=== PATIENT | male | born 1965 | race Caucasian/White ===

== ENCOUNTER 2021-07-26 08:14 | Emergency (ER) | payer MEDICARE, OTHER ==
[~2021-07-26] VITALS: Ht 185 cm; Wt 100.0 kg
--- OUTSIDE RECORDS SUMMARY | 2021-07-26 08:20 | XMS REPORT | Clinical Summary ---
Author Author [facility] Organization [facility] Address Unknown Phone Unavailable Care Team Providers Care Chopped Strand Operator Name Role Phone Jose Rosales MD PCP Allergies Comments Active Allergy Reactions Severity Noted Date Sulfa (Sulfonamide Confusion, 08/24/2009 Antibiotics) Delirium Medications End Date Status Medication Sig Dispensed Refills Start Date Active gabapentin (NEURONTIN) Take 600 mg 0 600 MG tablet by mouth 3 (three) times a day. Active HYDROcodone-acetaminophen Take 2 0 (NORCO) 7.5-325 mg per tablets by tablet mouth every 6 (six) hours as needed for pain. Active nitroglycerin (NITROSTAT) Dissolve 0.4 0 0.4 MG SL tablet mg under the tongue every 5 (five) minutes as needed for chest pain. May repeat for a total of 3 doses. Active cyclobenzaprine Take 10 mg by 0 (FLEXERIL) 10 MG tablet mouth nightly. Active aspirin 325 MG EC tablet Take 325 mg 0 by mouth daily. Active atorvastatin (LIPITOR) 40 Take 1 tablet 90 tablet 3 11/14/201 MG tablet (40 mg total) 7 by mouth nightly. Active Problems Problem Noted Date Smoker 11/14/2016 FH: CAD (coronary artery disease) 11/14/2016 Essential hypertension 11/14/2016 PVD (peripheral vascular disease) 11/14/2016 Subclavian artery stenosis, left 11/14/2016 Precordial pain 11/14/2016 S/P CABG (coronary artery bypass graft) 08/14/2009 Overview: Formatting of this note might be differ ent from the original. No details History of myocardial infarction 08/14/2009 Hyperlipidemia Current every day smoker Coronary atherosclerosis Family History Medical History Relation Name Comments Heart attack Father Diabetes Mother Heart failure Mother Hypertension Mother Stroke Mother No Known Problems Sister 1 Heart attack Sister 2 Hypertension Sister 2 Relation Name Status Comments Father Mother Sister 1 Alive Sister 2 Alive Social History Date Tobacco Use Types Packs/Day Years Used Started: 1984 Current Every Day Smoker Cigarettes 1 30 Smokeless Tobacco: Former Chew Quit: 1986 User Comments Alcohol Use Standard Drinks/Week Yes 21 (1 standard drink = 0.6 oz pure alcohol) Sex Assigned at Date Recorded Not on file Last Filed Vital Signs Reading Time Taken Comments Vital Sign 124/90 11/14/2016 7:40 AM CDT Blood Pressure 78 11/14/2016 7:36 AM CDT regular Pulse - - Temperature - - Respiratory Rate - - Oxygen Saturation - - Inhaled Oxygen Concentration 77.4 kg (170 lb 9.6 oz) 11/14/2016 7:36 AM CDT Weight 185.4 cm (6' 1") 11/14/2016 7:36 AM CDT Height 22.51 11/14/2016 7:36 AM CDT Body Mass Index Plan of Treatment Health Maintenance Due Date Last Done Comments Td/Tdap# 1965 Tobacco Cessation 1965 Counseling # Pneumococcal Vaccine: 1972 Pediatrics (0 to 5 Years) and At-Risk Patients (6 to 64 Years) (1 of 2 - PPSV23) Zoster Vaccine# (1 of 2) 2016 Influenza Vaccine (#1) 2021 Results Not on filefrom Last 3 Months Advance Directives For more information, please contact: [phone] 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
[2021-07-26] MEDS ORDERED: ORPHENADRINE 60 MG/2 ML (NORFLEX) AMP (ED ONLY) IM STA (08:29)
[2021-07-26] MEDS ORDERED: HYDROmorphone 2 MG/ML VIAL (DILAUDID) IM STA ×2 (08:29→10:04)
[2021-07-26] MEDS ORDERED: KETOROLAC 60 MG/2 ML VIAL IM STA (08:29)
--- NOTE | 2021-07-26 08:36 | ED Back Pain ---
General Chief Complaint: Back Problems Stated Complaint: FALL; BACK INJ Source of Information: Patient, Spouse Exam Limitations: Other (oain) History of Present Illness Date Seen by Provider: Jul 26, 2021 Time Seen by Provider: 08:17 Initial Comments 56-year-old male presenting with complaints of acute on chronic low back pain. He has previously had surgery on his back around 2012. He states that he did not listen to his physician and went back to work too soon after surgery. He has had chronic back pain ever since surgery. He has neuropathy in his legs as well. 3 days ago he was moving some chairs and has had increased back pain and numbness and tingling in his legs since then. This morning at 6 AM he had more weakness in his legs and had fallen causing him to land on his buttocks and low back. He denies hitting his head or losing consciousness. He denies any other injuries from the fall. He denies having any loss of bowel or bladder control. He had taken his morning morphine dose but was still having severe pain. His brought him to the emergency department because he was in tears due to the pain. Even though he has had increased pain the last 3 days he had not made any attempt to try and be seen or contact the clinic for follow-up and evaluation. The thought that the pain and symptoms would improve. He has had no recent imaging of the spine. Location: Coccyx, Lumbar Spine, Paraspinous Muscles Timing/Duration: 3-4 Days, Getting Worse Severity: Severe Pain/Injury Location: Back Method of Injury: Other (as above) Modifying Factors: Worse With Movement Associated Symptoms: muscle spasms; No fever, No weakness; numbness in legs/feet (chronic but felt it was worse in last few days); No sensory/motor loss; lower back pain (acute on chronic); No loss of bladder control, No loss of bowel control Allergies and Home Medications Allergies Coded Allergies: Influenza Virus Vaccines (Verified Allergy, Unknown, 07/26/21) pneumococcal vaccine (Verified Allergy, Unknown, 07/26/21) Patient Home Medication List Home Medication List Reviewed: Yes Methocarbamol (Methocarbamol) 750 Mg Tablet, 1,500 MG PO Q8H PRN for back spasms/pain Prescribed by: DILLAN NUGENT on 07/26/21 1007 Methylprednisolone (Methylprednisolone Dose Pack) 4 Mg Tab.ds.pk, 4 MG PO UD Prescribed by: DILLAN NUGENT on 07/26/21 1007 Oxycodone HCl/Acetaminophen (Percocet 10-325 mg Tablet) 1 Each Tablet, 1 TAB PO Q4H PRN for PAIN-BREAKTHROUGH Prescribed by: DILLAN NUGENT on 07/26/21 1008 Review of Systems Constitutional: no symptoms reported EENTM: no symptoms reported Respiratory: no symptoms reported Cardiovascular: no symptoms reported Gastrointestinal: no symptoms reported Genitourinary: no symptoms reported Musculoskeletal: see HPI Skin: No change in color Psychiatric/Neurological: See HPI Past [id number]-[id number]-[id number] Hx Past Medical History Surgery/Hospitalization HX: Lumbar spine surgery with rods 2012 Surgeries: Yes Orthopedic Cardiac: Yes High Cholesterol, Hypertension Genitourinary: No Gastrointestinal: No Musculoskeletal: Yes Degenerate Disk Disease, Arthritis, Back Injury, Chronic Back Pain Physical Exam Vital Signs Vital Signs - First Documented 07/26/21 08:57 Temp 35.4 Pulse 82 Resp 18 B/P (MAP) 121/74 (90) Pulse Ox 99 O2 Delivery Room Air Capillary Refill : Height, Weight, BMI Height: '" Weight: lbs. oz. kg; BMI Method: General Appearance: WD/WN, Moderate Distress (moaning in pain, especially with movements) Cardiovascular: Regular Rate, Rhythm, Normal Peripheral Pulses Gastrointestinal: No Pulsatile Mass, Non Tender, Soft Back: No CVA Tenderness, Muscle Spasm, Vertebral Tenderness (lumbar spine without step offs or crepitus. 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 Norm as Tested, Other (DTR 2+ symmetrical BLE patellar and achilles) Skin: Normal Color, Warm/Dry Progress/Results/Core Measures Results/Orders My Orders Orders - DILLAN NUGENT MD Hydromorphone Injection (Dilaudid Inject (07/26/21 08:29) Ketorolac Injection (Toradol Injection) (07/26/21 08:29) Orphenadrine Inj (Ed Only) (Norflex Inje (07/26/21 08:29) Ct Lumbar Spine Wo (07/26/21 08:36) Ct Pelvis Wo (07/26/21 08:36) Hydromorphone Injection (Dilaudid Inject (07/26/21 10:04) Vital Signs/I&O 07/26/21 07/26/21 08:57 10:18 Temp 35.4 Pulse 82 Resp 18 B/P (MAP) 121/74 (90) Pulse Ox 99 O2 Delivery Room Air Progress Progress Note #1: Progress Note Since he already takes extended release morphine twice a day as well as taking gabapentin will try Dilaudid IM as well as Toradol for inflammation and Norflex for muscle spasm. Obtain CT scan of the lumbar spine and pelvis to evaluate for acute bony injury from recent fall and straining with moving chairs. Progress Note #2: Progress Note Pain down to 5 out of [address] scan did not demonstrate any acute compression fracture or hardware failure. Will repeat the Dilaudid for additional pain relief and to help with the troponin. Counseled about pain contracts and that I can prescribe a breakthrough pain medication but he may need to check with Dr. Prieto. Also will try a different muscle relaxer since the Flexeril was not helping very much. Will also try a Medrol Dosepak. His called Dr. Prieto's office and they will prescribe pain medicine since he is on a pain contract. I had already sent a script to the pharmacy so advised pt and to fill Dr. Prieto's script not mine for pain. May still need to see pain management, physical therapy, citizen participation specialist. Diagnostic Imaging Diagonstic Imaging: CT Plain Films/CT/US/NM/MRI: pelvis Comments [facility] [place] NAME: [facility] REC#: [id number] PT STATUS: REG ER : 1965 PHYSICIAN: DILLAN NUGENT MD ADMIT DATE: 07/26/21/ER FS Signed Date of Exam:07/26/21 CT PELVIS WO PROCEDURE: CT pelvis without contrast. TECHNIQUE: Multiple contiguous axial images were obtained through the pelvis without the use of intravenous contrast. Sagittal and coronal reformations were performed. Auto Exposure Controls were utilized during the CT exam to meet ALARA standards for radiation dose reduction. INDICATION: Acute on chronic low back pain and pelvic pain. COMPARISON: None. FINDINGS: No acute fracture or dislocation is seen in the pelvis and bilateral hips. No suspicious focal osseous lesions. Mild degenerative changes are seen in the bilateral femoroacetabular joints with joint space narrowing and subchondral sclerosis. Mild degenerative changes are also seen at the pubic symphysis. The bilateral SI joints demonstrate normal alignment. Vascular stents are visualized in the bilateral common iliac arteries and right external iliac artery. Diverticuli are seen in the sigmoid colon without evidence of acute diverticulitis. A normal appendix is seen. The urinary bladder is nondistended. IMPRESSION: 1. No acute fracture or dislocation in the pelvis and bilateral hips. 2. 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 Dictated by: Dictated on workstation # [id number] Dict: 07/26/21914 Trans: 07/26/21921 [facility] [id number] Interpreted by: KATHYA BOURNE DO Electronically signed by: KATHYA BOURNE DO 07/26/21921 Reviewed: Reviewed by Nd Diagonstic Imaging: CT Plain Films/CT/US/NM/MRI: other (lumbar spine) Comments [facility] [place] NAME: [facility] REC#: [id number] PT STATUS: REG ER : 1965 PHYSICIAN: DILLAN NUGENT MD ADMIT DATE: 07/26/21/ER FS Draft Date of Exam:07/26/21 CT LUMBAR SPINE WO PROCEDURE: CT lumbar spine without contrast. TECHNIQUE: Multiple contiguous axial images were obtained through the lumbar spine without the use of intravenous contrast. Sagittal and coronal reformations were then performed. Auto Exposure Controls were utilized during the CT exam to meet ALARA standards for radiation dose reduction. INDICATION: Acute on chronic low back pain. Fall this morning. COMPARISON: None. FINDINGS: There is posterior fusion of the lumbar spine from L4 to L5 with bilateral pedicle screws and posterior fusion rods. No hardware loosening or fracture is seen. There is an interbody disc spacer at L4-L5. Vertebral body heights are preserved. No acute fracture is seen. Alignment appears normal. There is no spondylolisthesis. The soft tissue contents of the spinal canal are not well evaluated by CT. There is moderate stenosis of the L5-S1 foramina bilaterally. There appears to be spinal canal stenosis at L2-L3 and L3-L4. There is marked atherosclerosis in the aorta and bilateral iliac arteries. Stents are placed in the bilateral common iliac arteries. The right common iliac stent appears crushed proximally with marked narrowing. IMPRESSION: 1. Posterior fusion of L4-L5 without hardware complication seen. 2. No acute fracture in the lumbar spine. 3. Degenerative changes with spinal canal and foraminal stenosis as described above. 4. Calcific atherosclerosis with bilateral iliac stents. The proximal right common iliac stent appears crushed with marked narrowing. Dictated on workstation # [id number] Dict: 07/26/21903 Trans: 07/26/2114 [id number] Interpreted by: JANUARY GUSMAN MD Electronically signed by: Reviewed: Reviewed by Me Departure Impression Primary Impression: Acute exacerbation of chronic low back pain Additional Impressions: Acute lumbar myofascial strain Qualified Codes: S39.012A - Strain of muscle, fascia and tendon of lower back, initial encounter Lumbar contusion Qualified Codes: S30.0XXA - Contusion of lower back and pelvis, initial encounter Degenerative lumbar spinal stenosis Fall at home Qualified Codes: W19.XXXA - Unspecified fall, initial encounter; Y92.009 - Unspecified place in unspecified non-institutional (private) residence as the place of occurrence of the external cause Disposition: 01 HOME, SELF-CARE Condition: Improved Departure-Patient Inst. Decision time for Depature: 10:08 Referrals: PAULA PRIETO MD (PCP/Family) Primary Care Physician Patient Instructions: Preventing Falls ED, Muscle Strain ED, Low Back Pain ED Add. Discharge Instructions: Follow up with Dr. Prieto and the [facility] clinic as you may need referred to pain management, physical therapy, and/or citizen participation specialist for your back pain. Use the immediate release medicine for breakthrough pain in addition to your long acting Morphine. Work with Dr. Prieto for controlling your increased pain and worsening back symptoms. If not improving with rest and medicines then Dr. Prieto may have to order an MRI or refer you to citizen participation specialist for your back, You may alternate ice and heat to your back to help with the pain and inflammation. All discharge instructions reviewed with patient and/or family. Voiced understanding. Scripts Oxycodone HCl/Acetaminophen (Percocet 10-325 mg Tablet) 1 Each Tablet 1 TAB PO Q4H PRN for PAIN-BREAKTHROUGH MDD 3 TABS for 7 Days, #42 TAB 0 Refills Prov: DILLAN NUGENT MD 07/26/21 Methocarbamol (Methocarbamol) 750 Mg Tablet 1500 MG PO Q8H PRN for back spasms/pain for 10 Days, #60 TAB 0 Refills Prov: DILLAN NUGENT MD 07/26/21 Methylprednisolone (Methylprednisolone Dose Pack) 4 Mg Tab.ds.pk 4 MG PO UD for Back Pain for 6 Days, #21 PKG 0 Refills PER DOSE PACK INSTRUCTIONS Prov: DILLAN NUGENT MD 07/26/21 DILLAN NUGENT MD Jul 26, 2021 08:36
[2021-07-26 08:57] VITALS: BP 121/74
--- NOTE | 2021-07-26 09:15 | Diagnostic Imaging Report ---
PROCEDURE: CT lumbar spine without contrast. TECHNIQUE: Multiple contiguous axial images were obtained through the lumbar spine without the use of intravenous contrast. Sagittal and coronal reformations were then performed. Auto Exposure Controls were utilized during the CT exam to meet ALARA standards for radiation dose reduction. INDICATION: Acute on chronic low back pain. Fall this morning. COMPARISON: None. FINDINGS: There is posterior fusion of the lumbar spine from L4 to L5 with bilateral pedicle screws and posterior fusion rods. No hardware loosening or fracture is seen. There is an interbody disc spacer at L4-L5. Vertebral body heights are preserved. No acute fracture is seen. Alignment appears normal. There is no spondylolisthesis. The soft tissue contents of the spinal canal are not well evaluated by CT. There is moderate stenosis of the L5-S1 foramina bilaterally. There appears to be spinal canal stenosis at L2-L3 and L3-L4. There is marked atherosclerosis in the aorta and bilateral iliac arteries. Stents are placed in the bilateral common iliac arteries. The right common iliac stent appears crushed proximally with marked narrowing. IMPRESSION: 1. Posterior fusion of L4-L5 without hardware complication seen. 2. No acute fracture in the lumbar spine. 3. Degenerative changes with spinal canal and foraminal stenosis as described above. 4. Calcific atherosclerosis with bilateral iliac stents. The proximal right common iliac stent appears crushed with marked narrowing. Dictated by: Dictated on workstation # [id number]
--- NOTE | 2021-07-26 09:21 | Diagnostic Imaging Report ---
PROCEDURE: CT pelvis without contrast. TECHNIQUE: Multiple contiguous axial images were obtained through the pelvis without the use of intravenous contrast. Sagittal and coronal reformations were performed. Auto Exposure Controls were utilized during the CT exam to meet ALARA standards for radiation dose reduction. INDICATION: Acute on chronic low back pain and pelvic pain. COMPARISON: None. FINDINGS: No acute fracture or dislocation is seen in the pelvis and bilateral hips. No suspicious focal osseous lesions. Mild degenerative changes are seen in the bilateral femoroacetabular joints with joint space narrowing and subchondral sclerosis. Mild degenerative changes are also seen at the pubic symphysis. The bilateral SI joints demonstrate normal alignment. Vascular stents are visualized in the bilateral common iliac arteries and right external iliac artery. Diverticuli are seen in the sigmoid colon without evidence of acute diverticulitis. A normal appendix is seen. The urinary bladder is nondistended. IMPRESSION: 1. No acute fracture or dislocation in the pelvis and bilateral hips. 2. 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 Dictated by: Dictated on workstation # [id number]
[2021-07-26] MEDS ORDERED: OXYC1TAB12 PO (10:07)
[2021-07-26] MEDS ORDERED: METH-732 PO (10:07)
[2021-07-26] MEDS ORDERED: METH4TAB10 PO (10:07)
== END 2021-07-26 10:16 | disposition home or self-care (01) ==
LOC: ER FS 08:17
DX: S39.012A Strain of muscle, fascia and tendon of lower back, initial encounter (principal); M48.061 Spinal stenosis, lumbar region without neurogenic claudication; G89.29 Other chronic pain; I10 Essential (primary) hypertension; X50.0XXA Overexertion from strenuous movement or load, initial encounter; Y92.009 Unspecified place in unspecified non-institutional (private) residence as the place of occurrence of the external cause
CPT/HCPCS: 72131; 72192; 99281

== ENCOUNTER 2022-06-25 17:21 | Emergency (ER) | payer MEDICARE ==
[~2022-06-25] VITALS: Ht 185.4 cm; Wt 100.0 kg
[~2022-06-25 17:21] MED LIST: METH-732 PO; METH4TAB10 PO; OXYC1TAB12 PO
[2022-06-25] MEDS ORDERED: LIDOCAINE 1% INJ 20 ML VIAL INJ STA (17:30)
--- NOTE | 2022-06-25 17:33 | ED Upper Extremity ---
General Chief Complaint: Laceration Stated Complaint: LT FINGER LAC Source: patient History of Present Illness Date Seen by Provider: Jun 25, 2022 Time Seen by Provider: 17:25 Initial Comments 57-year-old male presenting with complaints of laceration to his left index finger. He was trying to dress a deer that he had just killed. He accidentally cut into the back of his left index finger. He states he is left-hand dominant. He finished dressing the deer prior to coming to the emergency department. He had a tetanus shot 2 to 3 years ago. He denies any numbness or weakness in his finger. He denies any other injuries Onset: this afternoon Severity: mild Pain/Injury Location: left 2nd finger Method of Injury: incised Modifying Factors: Worse With Movement Allergies and Home Medications Allergies Coded Allergies: Influenza Virus Vaccines (Verified Allergy, Unknown, 07/26/21) pneumococcal vaccine (Verified Allergy, Unknown, 07/26/21) Patient Home Medication List Home Medication List Reviewed: Yes Doxycycline Hyclate (Doxycycline Hyclate) 100 Mg Tablet, 100 MG PO BID Prescribed by: DILLAN NUGENT on 06/25/22 1815 Methocarbamol (Methocarbamol) 750 Mg Tablet, 1,500 MG PO Q8H PRN for back spasms/pain Prescribed by: DILLAN NUGENT on 07/26/21 1007 Methylprednisolone (Methylprednisolone Dose Pack) 4 Mg Tab.ds.pk, 4 MG PO UD Prescribed by: DILLAN NUGENT on 07/26/21 1007 Oxycodone HCl/Acetaminophen (Percocet 10-325 mg Tablet) 1 Each Tablet, 1 TAB PO Q4H PRN for PAIN-BREAKTHROUGH Prescribed by: DILLAN NUGENT on 07/26/21 1008 Review of Systems Constitutional: No chills, No fever EENTM: no symptoms reported Respiratory: no symptoms reported Cardiovascular: no symptoms reported Gastrointestinal: no symptoms reported Genitourinary: no symptoms reported Musculoskeletal: see HPI Skin: see HPI Psychiatric/Neurological: Denies Numbness, Denies Paresthesia, Denies Tingling, Denies Weakness Past Zedagay-Lymmfy-Qbqqcr Hx Past Medical History Surgery/Hospitalization HX: Lumbar spine surgery with rods 2012 Surgeries: Yes Orthopedic Cardiac: Yes High Cholesterol, Hypertension Genitourinary: No Gastrointestinal: No Musculoskeletal: Yes Degenerate Disk Disease, Arthritis, Back Injury, Chronic Back Pain Physical Exam Vital Signs Vital Signs - First Documented 06/25/22 17:25 Temp 36.4 Pulse 99 Resp 16 B/P (MAP) 164/97 (119) Pulse Ox 96 O2 Delivery Room Air Capillary Refill : Height, Weight, BMI Height: '" Weight: lbs. oz. kg; 29.00 BMI Method: General Appearance: WD/WN, no apparent distress Cardiovascular: normal peripheral pulses Hand: laceration (flap laceration to extensor surface of left index finger with mild tenderness at site of cut) Neurologic/Tendon: normal sensation, normal motor functions, normal tendon functions Neurologic/Psychiatric: alert, oriented x 3 Skin: normal color, warm/dry Procedures/Interventions Wound Location: Upper Extremities (left index finger) Wound Length (cm): 2.4 Wound's Depth, Shape: flap, sub Q Wound Explored: contaminated Irrigated w/ Saline (ccs): 250 Betadine Prep?: Yes Anesthesia: 1% Lidocaine Volume Anesthetic (ccs): 6 Suture: Ethlion Suture Size: 4-0 Number of Sutures: 7 Layer Closure?: 1 Sterile Dressing Applied?: Yes Progress After obtaining verbal consent from the patient the finger was anesthetized using 1% plain lidocaine. A total of 6 mL of 1% plain lidocaine were infiltrated in a ring block fashion for digital block. Patient had good anesthetic effect. Then using Betadine and sterile water the wound was irrigated and scrubbed. There were no obvious foreign bodies. Using 4-0 Ethilon a total of 7 simple interrupted stitches were placed to help approximate the wound edges. Wound edges were well approximated and patient tolerated procedure well without any immediate complication. Counseled on follow-up and return precautions. Advised to have stitches out in 10 to 14 days. Be seen sooner if having signs of infection. Progress/Results/Core Measures Results/Orders My Orders Orders - DILLAN NUGENT MD Lidocaine 1% Inj 20 Ml (Xylocaine 1% Inj (06/25/22 17:30) Suture Set At Bedside (06/25/22 17:30) Wound Dressing-Ed (06/25/22 17:30) Doxycycline Hyclate Tablet (Vibramycin T (06/25/22 18:10) Vital Signs/I&O 06/25/22 06/25/22 17:25 18:18 Temp 36.4 36.4 Pulse 99 99 Resp 16 16 B/P (MAP) 164/97 (119) 164/97 Pulse Ox 96 96 O2 Delivery Room Air Room Air Progress Progress Note : Progress Note Patient tolerated repair of the flap laceration to his left index finger well without any immediate complication. A total of 7 simple interrupted sutures were placed using 4-0 Ethilon. Since he did have contact with the deer blood and finished dressing the deer prior to coming to the emergency department will place him on doxycycline as an antibiotic based on reviewing information from online medical resource up-to-date. Departure Impression Primary Impression: Laceration of left index finger w/o foreign body w/o damage to nail Qualified Codes: S61.211A - Laceration without foreign body of left index finger without damage to nail, initial encounter Disposition: HOME, SELF-CARE Condition: Stable Departure-Patient Inst. Decision time for Depature: 18:13 Referrals: PAULA PRIETO MD (PCP) Primary Care Physician Patient Instructions: Laceration Repair With Stitches ED Add. Discharge Instructions: Take the antibiotic to help prevent infection. Keep wound clean and dry for first 24 hours then may wash with soap and water after removing the dressing. Do not soak the wound. Apply antibiotic ointment and a new bandaid or dressing if it might get dirty. Stitches should be removed in 10 to 14 days. Be seen sooner if signs of infection such as redness streaking up your hand, fever over 101 F, or pus draining from the wound. All discharge instructions reviewed with patient and/or family. Voiced understanding. Scripts Doxycycline Hyclate (Doxycycline Hyclate) 100 Mg Tablet 100 MG PO BID for laceration for 7 Days, #14 TAB 0 Refills Prov: DILLAN NUGENT MD 06/25/22 DILLAN NUGENT MD Jun 25, 2022 17:33
[2022-06-25] MEDS ORDERED: DOXYCYCLINE 100 MG (VIBRAMYCIN) TABLET PO STA (18:10)
[2022-06-25] MEDS ORDERED: DOXY100T2 PO (18:15)
[2022-06-25 18:18] VITALS: BP 164/97
== END 2022-06-25 18:18 | disposition home or self-care (01) ==
LOC: EDUNIT# 17:21 → ER FS 17:23
DX: S61.211A Laceration without foreign body of left index finger without damage to nail, initial encounter (principal); W26.9XXA Contact with unspecified sharp object(s), initial encounter